=== PATIENT | male | born 1985 | race Caucasian/White ===

== ENCOUNTER → 2024-04-06 | Outpatient (CLI) | payer BC, MEDICAID ==
[~2024-04-06] MED LIST: NORCO 325 MG-51 TAB PO; PEPCID 20MG TAB20 MG PO; PROTONIX 40MG T40 MG PO; WEGOVY2.4 MG/0.7 SQ
== END ==
LOC: COL.RAD 09:13
DX: K44.9 Diaphragmatic hernia without obstruction or gangrene (principal)

== ENCOUNTER 2024-05-19 12:53 | Day surgery (SDC) | payer BC, MEDICAID ==
[~2024-05-19] VITALS: Ht 185.4 cm; Wt 91.0 kg
[2024-05-19] VITALS (11 sets, daily range): BP systolic 110–149; BP diastolic 51–72; PULSE 50–82; TEMP 97.9–98.9
[~2024-05-19 12:53] MED LIST changes: +Famotidine 20 MG TAB PO SCH; +LR 1,000 ML IV SCH; +Metoclopramide 10 MG TAB PO SCH
[2024-05-19] MEDS ORDERED: fentaNYL 50 MCG/ML 2 ML VIAL ONE ×2 (13:06→16:20)
[2024-05-19] MEDS ORDERED: Rocuronium 50 MG/5 ML Multi-Dose VIAL ONE ×3 (13:06→15:48)
[2024-05-19] MEDS ORDERED: Succinylcholine PF 200 MG/10 ML SYRINGE IV ONE (13:06)
[2024-05-19] MEDS ORDERED: Lidocaine PF 2% (20 MG/ML) 5 ML VIAL ONE (13:06)
[2024-05-19] MEDS ORDERED: Ondansetron 4 MG/2 ML VIAL ONE (15:09)
[2024-05-19] MEDS ORDERED: NS 10 ML IV ONE (15:09)
[2024-05-19] MEDS ORDERED: dexAMETHasone 10 MG/ML VIAL ONE (15:09)
[2024-05-19] MEDS ORDERED: Midazolam 2 MG/2 ML VIAL ONE (16:48)
[2024-05-19] MEDS ORDERED: HYDROmorphone 0.5 MG/0.5 ML SYRINGE IV PRN (17:00)
[2024-05-19] MEDS ORDERED: oxyCODONE 5 MG TAB PO PRN (17:00)
[2024-05-19] MEDS ORDERED: Ondansetron 4 MG/2 ML VIAL IV PRN (17:00)
[2024-05-19] MEDS ORDERED: Naloxone 0.4 MG/ML VIAL IV PRN (17:00)
[2024-05-19] MEDS ORDERED: HYDROmorphone 1 MG/1 ML SYRINGE [PACU/SDC ONLY] IV PRN (17:35)
[2024-05-19] MEDS ORDERED: fentaNYL 50 MCG/ML 1 ML SYRINGE/VIAL [PACU/SDC ONLY] IV PRN (17:50)
[2024-05-19] MEDS ORDERED: Acetaminophen 500 MG TAB PO SCH (17:55)
--- NOTE | 2024-05-19 18:17 | NUR ---
PT ARRIVED TO THE FLOOR FROM PACU. PT SETTLED INTO ROOM. POST OP VITALS STARTED. ASSESSMENT COMPLETE. NO SIGNIFICANT FINDINGS. PT HAS 6 LAP SITES ON ABDOMEN W/ BANDAIDS OVER THEM. PT'S SUPPER ARRIVED.
--- NOTE | 2024-05-19 20:00 | NUR ---
PATIENT AWAKE IN BED CONSUMING FULL LIQUID DINNER TRAY-TOLERATING WELL AND DENIES PAIN AND NAUSEA AT THIS TIME. POST-OP VITALS REMAIN WNL. GIRLFRIEND VISITING BEDSIDE. 6 LAP SITES WITH BANDAIDS ARE CDI. PATIENT REPORTS HAS NOT URINATED, PASSED GAS OR WALKED YET. BOWEL SOUNDS PRESENT. PATIENT ENCOURAGED TO WALK AND STATED WILL DO SO IN 1 HOUR. CALL LIGHT WITHIN REACH, SCDs IN PLACE, RT FA IV FLUSHES WELL.
--- NOTE | 2024-05-19 21:30 | NUR ---
PATIENT AMBULATED UNIT TWICE WITH STEADY GAIT, HAS URINATED AND PASSED GAS. STATES NO NEEDS AT THIS TIME VS ARE WNL. LAP SITES REMAIN CDI.
[2024-05-20] VITALS (8 sets, daily range): BP systolic 110–128; BP diastolic 67–74; PULSE 51–68; TEMP 98.2–98.6
--- NOTE | 2024-05-20 03:00 | NUR ---
PATIENT DOING WELL. AMBULATING UNIT ROUTINELY. PAIN CONTROLLED WITH PEGGY. TOLERATING CLEARS.
--- NOTE | 2024-05-20 08:42 | NUR ---
THIS RN WAS NOTIFIED BY THAT PATIENT WAS IN "EXCRUITIATING PAIN, MOANING, GROANING, AND THRASHING IN BED." UPON ARRIVAL, PATIENT SIITING UP IN BED ON CELLPHONE. THIS RN ASKED PATIENT WHERE THE PAIN IS AND TO RATE IT. PATIENT RATED THE PAIN A 7/10 IN THE LEFT SHOULDER. THIS RN EXPLAINED TO PATIENT THAT LYNDSAY AND TYLENOL WERE ADMINISTERED AT 0620. ENCOURAGED PATIENT TO WALK HALLS TO PROMOTE PASSING GAS.
--- NOTE | 2024-05-20 08:44 | NUR ---
PATIENT UP WALKING THE HALLS AT THIS TIME.
--- NOTE | 2024-05-20 08:51 | NUR ---
SW met with patient to complete initial assessment for discharge planning. Patient verified that he lives in [place] with friends. He lists his mom Selina ([phone]) and his friend Rabia Villavicencio ([phone]) as contacts. Patient sees MICHAEL Snell as his PCP and uses [facility] pharmacy without difficulty. Patient denies having any DME and denies having DPOA completed. Patient declines to complete DPOA at this time. Patient wants to return home at discharge with his friends to drive him. Discharge plan: Home
--- NOTE | 2024-05-20 15:14 | NUR ---
D: Rn Immunology stopped by room on rounds. A: Pt was resting and content. No needs right now. P: Rn Immunology informed pt that if he needed anything from the swimming pool attendant area to let his nurse know. Rn Immunology will follow up as needed.
[2024-05-20] MEDS ORDERED: ROXICODONE 55 MG/TAB PO (17:04)
--- NOTE | 2024-05-20 17:48 | NUR ---
THIS RN PROVIDED PATIENT WITH DISCHARGE EDUCATION AND INSTRUCTIONS. ALL QUESTIONS ANSWERED. IV TO RIGHT AC DISCONTINUED. MINIMAL DRAINAGE NOTED. PATIENT ESCORTED OFF UNIT AT APPROX 1745.
== END 2024-05-20 17:45 | disposition home or self-care (01) ==
LOC: SDCO 12:53 → SURG 18:10 → SDCO 05-20 17:45
DX: T85.591A Other mechanical complication of esophageal anti-reflux device, initial encounter (principal); K44.9 Diaphragmatic hernia without obstruction or gangrene; K21.9 Gastro-esophageal reflux disease without esophagitis; Z79.899 Other long term (current) drug therapy; Z98.890 Other specified postprocedural states
CPT/HCPCS: OP; J0690; J1100; J1171; J2250; J2405; J2704; J3010; J7120